=== PATIENT | male | born 1980 | race African-American/Black ===

== ENCOUNTER 2022-02-01 18:58 | Emergency (ER) | payer OTHER ==
[~2022-02-01] VITALS: Ht 172.7 cm; Wt 81.8 kg
[2022-02-01] MEDS ORDERED: DexAMETHasone SOD PHOS 10MG/1ML VIAL INJ IM ONE (20:15)
[2022-02-01] MEDS ORDERED: ALBUTEROL SULF 2.5 MG/0.5ML(0.5%) NEB SOLN NEB ONE (20:15)
[2022-02-01] MEDS ORDERED: IPRATROPIUM BROM 0.5 MG/2.5ML INH SOL NEB ONE (20:15)
[2022-02-01] MEDS ORDERED: BUDE1AER4 IN (20:57)
[2022-02-01] MEDS ORDERED: ALBU108A5 IN (20:57)
[2022-02-01 21:32] VITALS: BP 119/89
== END 2022-02-01 21:55 | disposition home or self-care (01) ==
LOC: ER 18:58
DX: J45.901 Unspecified asthma with (acute) exacerbation (principal)
CPT/HCPCS: 94640; 96372; 99283; J1100; J7644